=== PATIENT | female | born 1950 | race Caucasian/White ===

== ENCOUNTER → 2021-12-15 | Day surgery (SDC) | payer MEDICARE, OTHER ==
[~2021-12-15] VITALS: Ht 170.2 cm; Wt 95.4 kg
[~2021-12-15] MED LIST: ALEVE220 M1 PO; BACTRIM DS TAB1 EACH PO; CINNAMON500 MG PO; DOXYCYCLINE HY100 MG PO; KEFLEX500 MG PO; LEXAPRO 10MG TA10 MG PO; MELOXICAM15 MG PO; METFORMIN HCL500 MG PO; PRILOSEC20 MG PO; PROBIOTIC1 EAC1 PO; STOOL SOFTENER100 MG PO; TRIAMTERENE-HC1 EACH PO; VIBRAMYCIN100 MG PO; XARELTO10 MG PO
[2021-12-15 14:02] LABS: HCT 39.2 % (37.0-47.0); HGB 12.8 g/dl (12.5-16.0); MCHC 32.7 g/dL (32.0-36.0); MPV 11.8 fL (6.0-9.5); RBC 4.26 M/uL (4.20-5.40); RDW 13.1 % (11.5-14.0); WBC 6.6 K/uL (4.0-10.5)
[2021-12-15 14:26] LABS: CREATININE 0.9 mg/dL (0.51-0.95); POTASSIUM 4.4 mmol/L (3.5-5.1)
== END | disposition home or self-care (01) ==
LOC: FAS 12:11
PROVIDERS: Legal Medicine
DX: G56.02 Carpal tunnel syndrome, left upper limb (principal); G56.22 Lesion of ulnar nerve, left upper limb; E11.9 Type 2 diabetes mellitus without complications; F41.9 Anxiety disorder, unspecified; K21.9 Gastro-esophageal reflux disease without esophagitis; Z79.84 Long term (current) use of oral hypoglycemic drugs; Z79.899 Other long term (current) drug therapy
CPT/HCPCS: 36415; 80048; 93005; J0690; J1100; J2250; J2405; J2704; J2795; J3010; J7120